=== PATIENT | female | born 1990 | race Two or more races ===

== ENCOUNTER 2021-12-18 16:48 | Inpatient (IN) | payer OTHER ==
[~2021-12-18] VITALS: Ht 160 cm; Wt 81.6 kg
[~2021-12-18 16:48] MED LIST: PRENATABS RX T1 EACH PO
== END 2021-12-21 14:33 | disposition home or self-care (01) | DRG 833 ==
LOC: OBS/DEL 16:48 → LDR 12-20 07:16 → OB/GYN 12-20 07:16
PROVIDERS: ADMIT Obstetrics & Gynecology Obstetrics; ATTEND Obstetrics & Gynecology Obstetrics
PROC: 4A1HXCZ Monitoring of Products of Conception, Cardiac Rate, External Approach (ICD-10-PCS; principal; 2021-12-20)
DX: O23.42 Unspecified infection of urinary tract in pregnancy, second trimester (principal); Z3A.20 20 weeks gestation of pregnancy; Z20.822 Contact with and (suspected) exposure to COVID-19

== ENCOUNTER 2022-05-13 09:16 | Inpatient (IN) | payer OTHER ==
[~2022-05-13] VITALS: Ht 160 cm; Wt 3.2 kg
== END 2022-05-17 12:50 | disposition home or self-care (01) | DRG 788 ==
LOC: LDR 09:16 → O/R 09:16 → OB/GYN 05-14 17:51
PROVIDERS: ADMIT Obstetrics & Gynecology Obstetrics; ATTEND Obstetrics & Gynecology Obstetrics
PROC: 4A1HXCZ Monitoring of Products of Conception, Cardiac Rate, External Approach (ICD-10-PCS; 2022-05-13)
PROC: 10D00Z1 Extraction of Products of Conception, Low, Open Approach (ICD-10-PCS; principal; 2022-05-14 13:45)
DX: O62.1 Secondary uterine inertia (principal); Z3A.40 40 weeks gestation of pregnancy; Z37.0 Single live birth; Z20.822 Contact with and (suspected) exposure to COVID-19